=== PATIENT | male | born 1945 | race Two or more races ===

== ENCOUNTER 2022-10-18 16:43 | Inpatient (IN) | payer OTHER ==
[~2022-10-18] VITALS: Ht 167.6 cm; Wt 67.9 kg
[2022-10-18 18:33] LABS: Basophils # (auto) 0 10 ^3/uL (0-0.2); Basophils % (auto) 0.3 % (0.0-2.0); Eosinophils # (auto) 0.1 10 ^3/uL (0-0.8); Eosinophils % (auto) 0.8 % (0.0-7.0); Hematocrit 46.9 % (41.0-53.0); Hemoglobin 15.6 g/dL (13.5-17.5); Lymphocytes # (auto) 1.7 10 ^3/uL (0.4-5.4); Lymphocytes % (auto) 23.7 % (10.0-50.0); Mean Corpuscular Hemoglobin 29.9 pg (28.0-32.0); Mean Corpuscular Hgb Conc. 33.3 g/dL (32.0-36.0); Mean Corpuscular Volume 89.8 fL (80.0-100.0); Monocytes # (auto) 0.5 10 ^3/uL (0-1.3); Monocytes % (auto) 7.7 % (0.0-12.0); Neutrophils # (auto) 4.8 10 ^3/uL (1.6-8.6); Neutrophils % (auto) 67.5 % (37.0-80.0); Nucleated Red Blood Cells % 0.3 %; Red Blood Cells 5.22 10^6/uL (4.5-5.90); Red Cell Distribution Width 14.8 % (11.8-14.3); White Blood Cell 7.1 10^3/uL (4.4-10.8)
[2022-10-18 18:44] LABS: Urine Bacteria NONE SEEN /hpf (None Seen); Urine Blood 3+ /uL (Negative); Urine Mucus FEW (None Seen); Urine Specific Gravity 1.017 (1.001-1.035); Urine WBC 480 /hpf (0 - 3); Urine WBC Clumps PRESENT /hpf (None Seen)
[2022-10-18 18:51] LABS: Albumin 3.8 g/dL (3.4-5.0); BUN/Creatinine Ratio 13.5 (10.0-20.0); Calcium 9.3 mg/dL (8.5-10.1); Potassium 3.6 mmol/L (3.5-5.1)
[2022-10-18 18:54] LABS: Bilirubin, Total 0.4 mg/dL (0.2-1.0); Total Protein 7.2 g/dL (6.4-8.2)
[2022-10-18] MEDS ORDERED: ONDANSETRON HCL 4 MG/2 ML VIAL IV PRN (20:30)
[2022-10-18] MEDS ORDERED: cefTRIAXone 1GM/50ML D5W 50 ML IV ONE (20:45)
[2022-10-19] VITALS (7 sets, daily range): BP systolic 129–163; BP diastolic 67–87
[2022-10-19] MEDS: SODIUM CHLORIDE 0.9% 1,000 ML IV SCH ×4 (00:31→22:12)
[2022-10-19 06:25] LABS: Basophils # (auto) 0 10 ^3/uL (0-0.2); Basophils % (auto) 0.6 % (0.0-2.0); Eosinophils # (auto) 0.1 10 ^3/uL (0-0.8); Eosinophils % (auto) 2.6 % (0.0-7.0); Hematocrit 42.4 % (41.0-53.0); Hemoglobin 14.4 g/dL (13.5-17.5); Lymphocytes # (auto) 1.5 10 ^3/uL (0.4-5.4); Lymphocytes % (auto) 26.2 % (10.0-50.0); Mean Corpuscular Hemoglobin 30.7 pg (28.0-32.0); Mean Corpuscular Hgb Conc. 33.8 g/dL (32.0-36.0); Mean Corpuscular Volume 90.8 fL (80.0-100.0); Monocytes # (auto) 0.6 10 ^3/uL (0-1.3); Neutrophils # (auto) 3.4 10 ^3/uL (1.6-8.6); Neutrophils % (auto) 59.6 % (37.0-80.0); Nucleated Red Blood Cells % 0.1 %; Red Blood Cells 4.67 10^6/uL (4.5-5.90); Red Cell Distribution Width 14.5 % (11.8-14.3); White Blood Cell 5.7 10^3/uL (4.4-10.8)
[2022-10-19 06:40] LABS: Albumin 3.1 g/dL (3.4-5.0); Calcium 8.3 mg/dL (8.5-10.1); Potassium 3.6 mmol/L (3.5-5.1)
[2022-10-19 06:44] LABS: BUN/Creatinine Ratio 22.1 (10.0-20.0); Bilirubin, Total 0.3 mg/dL (0.2-1.0)
[2022-10-19] MEDS ORDERED: levoFLOXacin 500MG 100 ML IV SCH (10:00)
[2022-10-19] MEDS ORDERED: ONDANSETRON HCL 4 MG/2 ML VIAL ONE (12:48)
[2022-10-19] MEDS ORDERED: PROPOFOL 10 MG/ML 20 ML IV ONE (12:48)
[2022-10-19] MEDS ORDERED: fentaNYL CITRATE 100 MCG/2 ML VL ONE (12:48)
[2022-10-19] MEDS ORDERED: MIDAZOLAM HCL 2MG/2ML 2ml VIAL (1mg/ml) ONE (12:48)
[2022-10-19] MEDS ORDERED: DexAMETHasone SOD PHOS 10MG/1ML VIAL INJ ONE (12:48)
[2022-10-19] MEDS ORDERED: MORPHINE SULFATE INJ 2 MG/ml SYRG IV PRN (13:15)
[2022-10-19] MEDS ORDERED: HYDROmorphone HCL 2 MG/ML VL/or syr IV PRN ×3 (13:15→16:15)
[2022-10-19] MEDS ORDERED: METOCLOPRAMIDE HCL 5MG/ml INJ 2ml VIAL IV PRN (13:15)
[2022-10-19] MEDS ORDERED: HYDROmorphone HCL 2 MG/ML VL/or syr IV ONE ×2 (16:15→16:25)
[2022-10-19] MEDS: MORPHINE SULFATE INJ 2 MG/ml SYRG IV PRN ×2 (19:03→23:51)
[2022-10-20 04:45] VITALS: BP 146/79
[2022-10-20] MEDS: SODIUM CHLORIDE 0.9% 1,000 ML IV SCH ×2 (06:14→14:50)
[2022-10-20 06:36] LABS: BUN/Creatinine Ratio 15.4 (10.0-20.0); Calcium 8.2 mg/dL (8.5-10.1)
[2022-10-20 09:00] VITALS: BP 158/77
[2022-10-20] MEDS ORDERED: LACTULOSE 20Gm/30ML SOLN PO PRN (09:30)
[2022-10-20] MEDS ORDERED: ACETAMINOPHEN 325 MG TAB PO PRN (09:30)
[2022-10-20] MEDS: cefTRIAXone 1GM/50ML D5W 50 ML IV SCH (10:00)
[2022-10-20] MEDS: DOCUSATE SOD 100 MG CAP PO SCH ×2 (10:00→21:09)
[2022-10-20] MEDS ORDERED: OXYB5SOL PO ×2 (12:45→12:48)
[2022-10-20] MEDS ORDERED: TERA5CAP42 PO (12:46)
[2022-10-20] MEDS ORDERED: BENA40TA70 PO (12:48)
[2022-10-20] MEDS ORDERED: AMLO1TAB22 PO (12:49)
[2022-10-20 13:00] VITALS: BP 121/62
[2022-10-20] MEDS ORDERED: amLODIPine BESYLATE 5 MG TAB PO ONE (13:30)
[2022-10-20] MEDS ORDERED: BENAZEPRIL HCL 10 MG TAB PO ONE (13:30)
[2022-10-20 17:00] VITALS: BP 146/67
[2022-10-20 20:00] VITALS: BP 126/68
[2022-10-20 22:00] VITALS: BP 126/68
[2022-10-21 05:00] VITALS: BP 131/85
[2022-10-21] MEDS: SODIUM CHLORIDE 0.9% 1,000 ML IV SCH (05:39)
[2022-10-21 05:53] LABS: BUN/Creatinine Ratio 13.2 (10.0-20.0); Calcium 8.2 mg/dL (8.5-10.1); Potassium 3.4 mmol/L (3.5-5.1)
[2022-10-21] MEDS ORDERED: POTASSIUM CHL 20 Meq TABLET PO ONE (08:15)
[2022-10-21] MEDS: cefTRIAXone 1GM/50ML D5W 50 ML IV SCH (08:57)
[2022-10-21] MEDS: DOCUSATE SOD 100 MG CAP PO SCH ×2 (08:58→21:25)
[2022-10-21] MEDS: BENAZEPRIL HCL 10 MG TAB PO SCH (08:58)
[2022-10-21] MEDS: amLODIPine BESYLATE 5 MG TAB PO SCH (08:59)
[2022-10-21 09:00] VITALS: BP 137/74
[2022-10-21] MEDS ORDERED: OXYBUTYNIN CHL 5 MG TAB PO ONE (10:30)
[2022-10-21 12:35] VITALS: BP 138/75
[2022-10-21 17:06] VITALS: BP 140/74
[2022-10-21] MEDS: OXYBUTYNIN CHL 5 MG TAB PO SCH (18:35)
[2022-10-21 20:00] VITALS: BP 130/68
[2022-10-21 22:00] VITALS: BP 130/68
[2022-10-22] MEDS: OXYBUTYNIN CHL 5 MG TAB PO SCH ×3 (03:03→18:36)
[2022-10-22 05:00] VITALS: BP 131/69
[2022-10-22 06:56] LABS: BUN/Creatinine Ratio 14.5 (10.0-20.0); Calcium 8.9 mg/dL (8.5-10.1); Potassium 3.6 mmol/L (3.5-5.1)
[2022-10-22 09:00] VITALS: BP 130/67
[2022-10-22] MEDS: cefTRIAXone 1GM/50ML D5W 50 ML IV SCH (09:11)
[2022-10-22] MEDS: amLODIPine BESYLATE 5 MG TAB PO SCH (09:12)
[2022-10-22] MEDS: BENAZEPRIL HCL 10 MG TAB PO SCH (09:12)
[2022-10-22] MEDS: DOCUSATE SOD 100 MG CAP PO SCH ×2 (09:14→21:38)
[2022-10-22 13:00] VITALS: BP 139/83
[2022-10-22 16:56] VITALS: BP 144/81
[2022-10-22 20:00] VITALS: BP 130/68
[2022-10-22 21:45] VITALS: BP 136/87
[2022-10-23] MEDS: OXYBUTYNIN CHL 5 MG TAB PO SCH ×3 (03:03→18:59)
[2022-10-23 05:00] VITALS: BP 125/69
[2022-10-23 09:00] VITALS: BP 144/79
[2022-10-23] MEDS: cefTRIAXone 1GM/50ML D5W 50 ML IV SCH (09:06)
[2022-10-23] MEDS: amLODIPine BESYLATE 5 MG TAB PO SCH (09:07)
[2022-10-23] MEDS: DOCUSATE SOD 100 MG CAP PO SCH ×2 (09:07→21:13)
[2022-10-23] MEDS: BENAZEPRIL HCL 10 MG TAB PO SCH (09:08)
[2022-10-23 13:00] VITALS: BP 140/74
[2022-10-23 16:57] VITALS: BP 133/75
[2022-10-23 20:00] VITALS: BP 135/78
[2022-10-24] MEDS: OXYBUTYNIN CHL 5 MG TAB PO SCH ×3 (02:57→20:33)
[2022-10-24 05:30] VITALS: BP 136/77
[2022-10-24 09:00] VITALS: BP 134/76
[2022-10-24] MEDS: DOCUSATE SOD 100 MG CAP PO SCH ×2 (09:27→20:34)
[2022-10-24] MEDS: cefTRIAXone 1GM/50ML D5W 50 ML IV SCH (09:27)
[2022-10-24] MEDS: amLODIPine BESYLATE 5 MG TAB PO SCH (09:28)
[2022-10-24] MEDS: BENAZEPRIL HCL 10 MG TAB PO SCH (11:35)
[2022-10-24 13:00] VITALS: BP 131/78
[2022-10-24 16:50] VITALS: BP 118/68
[2022-10-24 20:00] VITALS: BP 132/62
[2022-10-24 22:00] VITALS: BP 132/76
[2022-10-25] MEDS: OXYBUTYNIN CHL 5 MG TAB PO SCH ×2 (03:22→11:20)
[2022-10-25 05:00] VITALS: BP 133/83
[2022-10-25 06:44] LABS: Basophils # (auto) 0.1 10 ^3/uL (0-0.2); Basophils % (auto) 0.9 % (0.0-2.0); Eosinophils # (auto) 0.3 10 ^3/uL (0-0.8); Eosinophils % (auto) 3.6 % (0.0-7.0); Hematocrit 40.5 % (41.0-53.0); Hemoglobin 14.2 g/dL (13.5-17.5); Lymphocytes # (auto) 1.4 10 ^3/uL (0.4-5.4); Lymphocytes % (auto) 19.3 % (10.0-50.0); Mean Corpuscular Hemoglobin 30.9 pg (28.0-32.0); Mean Corpuscular Hgb Conc. 34.9 g/dL (32.0-36.0); Mean Corpuscular Volume 88.6 fL (80.0-100.0); Monocytes # (auto) 0.6 10 ^3/uL (0-1.3); Monocytes % (auto) 8.2 % (0.0-12.0); Nucleated Red Blood Cells % 0.1 %; Red Blood Cells 4.58 10^6/uL (4.5-5.90); Red Cell Distribution Width 14.3 % (11.8-14.3); White Blood Cell 7.3 10^3/uL (4.4-10.8)
[2022-10-25 06:59] LABS: INR 0.99 (0.9-1.15); Partial Thromboplastin Time 32.6 sec (24.6-33.4)
[2022-10-25 07:01] LABS: Calcium 8.6 mg/dL (8.5-10.1); Potassium 3.5 mmol/L (3.5-5.1)
[2022-10-25] MEDS: cefTRIAXone 1GM/50ML D5W 50 ML IV SCH (09:15)
[2022-10-25] MEDS: DOCUSATE SOD 100 MG CAP PO SCH (09:18)
[2022-10-25] MEDS: amLODIPine BESYLATE 5 MG TAB PO SCH (09:18)
[2022-10-25 09:29] VITALS: BP 139/78
[2022-10-25 13:00] VITALS: BP 132/85
[2022-10-25] MEDS: BENAZEPRIL HCL 10 MG TAB PO SCH (14:07)
[2022-10-25 16:59] VITALS: BP 128/68
== END 2022-10-25 18:57 | disposition home or self-care (01) | DRG 666 ==
LOC: ER 16:43 → OVERFLOW 20:45 → WEST WING 23:11
PROVIDERS: ADMIT Nurse Practitioner Family; ATTEND Internal Medicine Geriatric Medicine
PROC: 0TCC8ZZ Extirpation of Matter from Bladder Neck, Via Natural or Artificial Opening Endoscopic (ICD-10-PCS; 2022-10-19)
PROC: 0T7D8DZ Dilation of Urethra with Intraluminal Device, Via Natural or Artificial Opening Endoscopic (ICD-10-PCS; 2022-10-19)
PROC: 0TCB8ZZ Extirpation of Matter from Bladder, Via Natural or Artificial Opening Endoscopic (ICD-10-PCS; principal; 2022-10-19 13:22)
PROC: 0VB08ZZ Excision of Prostate, Via Natural or Artificial Opening Endoscopic (ICD-10-PCS; 2022-10-19 13:22)
PROC: 0TBC8ZZ Excision of Bladder Neck, Via Natural or Artificial Opening Endoscopic (ICD-10-PCS; 2022-10-19 13:22)
DX: N32.0 Bladder-neck obstruction (principal); N30.01 Acute cystitis with hematuria; N40.1 Benign prostatic hyperplasia with lower urinary tract symptoms; N21.0 Calculus in bladder; N32.89 Other specified disorders of bladder; K57.30 Diverticulosis of large intestine without perforation or abscess without bleeding; F17.210 Nicotine dependence, cigarettes, uncomplicated; K59.00 Constipation, unspecified; Z85.51 Personal history of malignant neoplasm of bladder; Z90.79 Acquired absence of other genital organ(s)
CPT/HCPCS: 36415; 71045; 74176; 80048; 80053; 81001; 85025; 85610; 85730; 86850; 86900; 86901; 87086; 93005; G0378; J0696; J1100; J1956; J2250; J2405; J2704